=== PATIENT | male | born 1935 | race Caucasian/White ===

== ENCOUNTER 2016-08-29 14:28 | Inpatient (IN) | payer MEDICARE ==
[~2016-08-29] VITALS: Ht 172.7 cm; Wt 90.0 kg
[2016-08-30] VITALS (9 sets, daily range): BP systolic 119–151; BP diastolic 58–71; PULSE 48–68; RESP 14–18; TEMP 97.3–98.1; O2SAT 95–99
[2016-08-30] MEDS ORDERED: ASPI-110 PO (08:38)
[2016-08-30] MEDS ORDERED: HYDR12.57 PO (08:38)
[2016-08-30] MEDS ORDERED: RAMI5CAP PO (08:38)
[2016-08-30] MEDS ORDERED: ROSU10 PO (08:38)
[2016-08-30] MEDS ORDERED: DICL75TA PO (08:38)
[2016-08-30] MEDS ORDERED: CHOL5000 PO (08:38)
[2016-08-30 08:56] LABS: AUTOMATED NEUTROPHIL # 4.3 TH/MM3 (1.8-7.7); BASOPHIL # 0.1 TH/MM3 (0-0.2); BASOPHIL % 0.9 % (0.0-2.0); EOSINOPHIL # 0.1 TH/MM3 (0-0.4); EOSINOPHIL % 2.2 % (0.0-4.0); HEMATOCRIT 37.1 % (39.0-51.0); HEMO FLAGS DIFF FINAL; LYMPH % 21.5 % (9.0-44.0); LYMPHOCYTE # 1.3 TH/MM3 (1.0-4.8); MEAN CELL VOLUME 91.1 FL (80.0-100.0); MEAN CORPUSCULAR HEMOGLOBIN 31.8 PG (27.0-34.0); MEAN CORPUSCULAR HGB CONC 34.9 % (32.0-36.0); MONO % 5.7 % (0.0-8.0); NEUT % 69.7 % (16.0-70.0); PLATELET COUNT 147 TH/MM3 (150-450); RED BLOOD COUNT 4.07 MIL/MM3 (4.50-5.90); RED CELL DISTRIBUTION WIDTH 13.7 % (11.6-17.2); WHITE BLOOD COUNT 6.2 TH/MM3 (4.0-11.0)
[2016-08-30 09:05] LABS: APTT (PATIENT) 25.2 SEC (24.3-30.1)
[2016-08-30 09:12] LABS: BICARBONATE 26.1 MEQ/L (21.0-32.0); POTASSIUM 3.7 MEQ/L (3.5-5.1)
[2016-08-30] MEDS ORDERED: ceFAZolin INJ 1,000 MG VIAL ONE (09:17)
[2016-08-30] MEDS ORDERED: SODIUM CHLORIDE 0.9% INJ 100 ML ONE (09:18)
[2016-08-30] MEDS ORDERED: INSULIN HUMAN REGULAR 1,000 UNITS/10 ML VIAL SQ PRN (09:30)
[2016-08-30] MEDS ORDERED: CHLORHEXIDINE GLUCONATE 2 % 1 PACK (2 CLOTHS) TOPICAL PRN (09:30)
[2016-08-30] MEDS ORDERED: ceFAZolin 1,000 MG/NS 100 ML IV SCH ×2 (09:30)
[2016-08-30] MEDS ORDERED: METOPROLOL TARTRATE 25 MG TAB PO PRN (09:30)
[2016-08-30] MEDS ORDERED: LACTATED RINGER'S 1000 ML IV PRN (09:30)
[2016-08-30] MEDS ORDERED: SODIUM CHLORID 0.9% 500 ML IV PRN (09:30)
[2016-08-30] MEDS ORDERED: POVIDONE IODINE 5% (ANTISEPSIS KIT) 4 APPLICATIONS EACH NARE PRN (09:30)
[2016-08-30] MEDS ORDERED: HEPARIN SODIUM - SQ 10,000 UNITS/ML VIAL ONE (13:07)
[2016-08-30] MEDS ORDERED: BUPIVACAINE HCL PF 0.5% 30 ML VIAL ONE (13:07)
[2016-08-30] MEDS ORDERED: HEPARIN SODIUM - IV 10,000 UNITS/10 ML VIAL ONE (13:57)
[2016-08-30] MEDS ORDERED: PROTAMINE SULFATE 50 MG/5 ML VIAL ONE (13:57)
[2016-08-30] MEDS ORDERED: SUGAMMADEX SODIUM 200 MG/2 ML VIAL IV PUSH ONE ×2 (15:28)
[2016-08-30] MEDS ORDERED: MIDAZOLAM HCL 2 MG/2 ML VIAL ONE (17:12)
[2016-08-30] MEDS ORDERED: fentaNYL CITRATE 250 MCG/5 ML AMP ONE (17:12)
--- NOTE | 2016-08-30 17:12 | RADRPT ---
EXAM DATE/TIME: 08/30/2016 13:27 [place] COMPARISON: US GUIDED VASCULAR ACCESS, RIGHT, August 30, 2016, 0:00. INDICATIONS : Patient with AAA in need of hypogastric embolization prior to AAA repair. MEDICAL HISTORY : 1.CAD 2.Mitral/Tricuspid Valve regurg 3.Sleep apnea SURGICAL HISTORY : 1.Right hip replacement 2.CABG 3.Eye surgery ENCOUNTER: Initial ACUITY: > 1 year PAIN SCORE: 0/10 FLUORO TIME: 10.6 minutes IMAGE SERIES: 11 ACCESS SITE: Right Femoral artery CONTRAST: 1.) 60 cc omnipaque 300 DEVICE(S): 1.) Right internal iliac artery 10/5 Tornado embolic coil(s) x 8 2.) Right internal iliac artery 12mm x 7cm embolic coil(s) Anesthesia and pain control was provided by the Anesthesia department. TECH NOTE: Procedure performed in the [facility] MR#:[id number] :35 Exam Dt/Desc: August 30, 2016AN GIOGRAM, PELVIC PROCEDURE : 1. Ultrasound-guided puncture of the access site. 2. Conscious sedation with continuous EKG and Oximetry monitoring. 3. Angiography of the right hypogastric circulation 4. embolization of the right hypogastric artery. The patient is an 81-year-old with an abdominal aortic aneurysm as well as aneurysmal dilation of the right common iliac artery. The risks, benefits and alternatives to the procedure were explained and verbal and written consent w as obtained by Dr. Crow Ball. The site was prepped in sterile fashion. Full sterile technique was used, including cap, mask, sterile gloves and gown and a large sterile sheet. Hand hygiene and 2% ch lorhexidine and/or betadine/alcohol prep was utilized per protocol for cutaneous antisepsis. The ski n and subcutaneous tissues were infiltrated with local anesthetic solution. With ultrasound and fluoroscopic guidance the selected artery was punctured and a vascular sheath was placed A 0.035 angled Glidewire and Cobra glide catheter were advanced from the left groin and over into the right hypogastric origin. The catheter and wire were passed down into the distal aspect of the hypog astric. The origin of the hypogastric was embolized with multiple 10 mm x 15 cm embolization coils. S everal followup angiograms were performed. At the conclusion of the procedure there was near-complete stasis of flow within the hypogastric. Following embolization of the hypogastric circulation aneurysm repair was performed by Dr. Ball. CONCLUSION: Successful embolization of the right hypogastric origin. Flynn Roper MD on August 30, 2016 at 17:08 Board Certified Radiologist. This report was verified electronically.
--- NOTE | 2016-08-30 19:04 | EKG ---
Date Performed: 08/30/2016 Time Performed: 08:36:20 PTAGE: 81 years EKG: SINUS BRADYCARDIA BORDERLINE ECG NO PREVIOUS TRACING DOCTOR: Bi Arnold Interpretating Date/Time 08/30/2016 19:02:02
[2016-08-30] MEDS ORDERED: ONDANSETRON HCL 4 MG/2 ML VIAL IV PUSH PRN ×2 (19:45→20:45)
[2016-08-30] MEDS ORDERED: POTASSIUM PHOSPHATE 21 MMOL/NS 250 ML IV PRN ×4 (19:45→20:45)
[2016-08-30] MEDS ORDERED: POTASSIUM CHLOR 20 MEQ/100 ML x 1 BAG IV PRN ×2 (19:45→20:45)
[2016-08-30] MEDS ORDERED: MAGNESIUM SULFATE 1 GM/100 ML IV PRN ×2 (19:45→20:45)
[2016-08-30] MEDS ORDERED: POTASSIUM CHLOR 20 MEQ 100 ML x 2 BAGS IV PRN ×2 (19:45→20:45)
[2016-08-30] MEDS ORDERED: ACETAMINOPHEN/HYDROcodone 325 MG/5 MG TAB PO PRN ×2 (19:45→20:45)
[2016-08-30] MEDS ORDERED: LACTATED RINGER'S 500 ML INJ IV SCH (20:45)
[2016-08-30] MEDS ORDERED: ASPIRIN EC 81 MG TABEC PO SCH (22:00)
[2016-08-31] VITALS (13 sets, daily range): BP systolic 117–137; BP diastolic 52–74; PULSE 42–78; RESP 16; TEMP 98.2–98.6; O2SAT 96
[2016-08-31] MEDS ORDERED: ASPIRIN 81 MG CHEW TAB PO SCH (09:00)
[2016-08-31] MEDS ORDERED: HYDROCHLOROTHIAZIDE 12.5 MG CAP PO SCH (09:00)
[2016-08-31] MEDS ORDERED: ASPIRIN EC 81 MG TABEC PO SCH ×2 (09:00)
[2016-08-31] MEDS ORDERED: ATORVASTATIN 20 MG TAB PO SCH (09:00)
[2016-08-31] MEDS ORDERED: RAMIPRIL 5 MG CAP PO SCH (09:00)
--- NOTE | 2016-08-31 09:38 | MP ---
cc: DICK DEL ANGEL M.D., JAMES LASTARZA, MARK W. M.D., PH.D DATE OF SURGERY 08/30/2016 PREOPERATIVE DIAGNOSIS A 5.8 cm diameter infrarenal abdominal aortic aneurysm extending into both common iliac arteries. POSTOPERATIVE DIAGNOSIS A 5.8 cm diameter infrarenal abdominal aortic aneurysm extending into both common iliac arteries. OPERATIVE PROCEDURE Percutaneous endovascular aneurysm repair. Sacrifice embolization right internal iliac artery. SURGEON Corey Ball MD UNIFORMER Elliot Roper MD ANESTHESIA General endotracheal DESCRIPTION OF PROCEDURE With the patient in the supine position and under general endotracheal anesthesia, the abdomen, both groins and thighs were prepped with Betadine and draped in a sterile fashion. One gram of Ancef was administered intravenously and following a protocol time-out, skin and subcutaneous tissue at the proposed common femoral access site infiltrated with one quarter percent Marcaine with epinephrine. Utilizing ultrasound guidance, both common femoral arteries were accessed identically with 18 gauge needles, J-wire access to the common femoral iliac arteries and subsequent deployment of 7-Montenegrin hemostatic sheath. Dr. Elliot Roper then performed a sacrifice embolization of the right internal iliac artery. An angled glide wire over the aortic bifurcation from the left femoral approach and navigated under fluoroscopic guidance into the right internal iliac artery. A 5-[place]grin right angle sheath was guided over the guidewire and placed within the right internal iliac lumen. Multiple embolic coils were delivered into the right internal iliac and one of the posterior branches achieving occlusion. Angled glide wires were then navigated into the suprarenal aorta and Perclose devices deployed at the 10 and 2 o'clock positions bilaterally followed by replacement of the 7-[place]grin sheath. Angled glide wires were then exchanged over Berenstein catheters for Amplatz wires. The 7-Montenegrin sheaths were exchanged for 18 and 12-[place]gr[place] sheaths respectively via the right and left femoral approaches. The patient was systemically heparinized with 5000 units. A marker pigtail catheter was then guided via the left femoral sheath to the suprarenal aorta. Aortogram accurately delineated the origin of both renal arteries. The main body of the endoprosthesis was then guided via the right femoral sheath and placed within the sub renal aorta immediately distal to the origin of the renal arteries and pre deployed. The contralateral gate was engaged with a Berenstein angle glide wire combination. A 260 compliant balloon was then guided into the endoprosthetic lumen and partially inflated to ensure intraluminal localization. The marker pigtail catheter was replaced into the endoprosthetic lumen and a retrograde left femoral sheath injection accurately delineated the left iliac bifurcation allowing appropriate selection of the contralateral iliac leg length. The contralateral leg was deployed. Final deployment of the aortic and right iliac limb was completed. The aortic, iliac seal zones and overlap areas were balloon angioplastied with the compliant balloon. Completion angiogram revealed a small type IA leak along the right lateral wall. The 260 balloon reintroduced and the aortic seal area additionally dilated. Completion angiogram revealed complete eradication of the type IA endoleak with no technical defects. The hemostatic sheaths were removed and hemostasis achieved with the pre-deployed Perclose devices. Heparin was not reversed. At the completion of the procedure, pedal pulses remained easily palpable and vital signs normal. MD SAMMY Gtz/JUAN DIEGO /8:07 AM /9:26 AM
== END 2016-08-31 15:36 | disposition home or self-care (01) | DRG 269 ==
LOC: HSDI 08-30 07:45 → HCIN 08-30 17:21
PROVIDERS: ADMIT Surgery Vascular Surgery; ATTEND Surgery Vascular Surgery
PROC: 04V03D6 (ICD-10-PCS; principal; 2016-08-30)
PROC: 04VE3DZ Restriction of Right Internal Iliac Artery with Intraluminal Device, Percutaneous Approach (ICD-10-PCS; 2016-08-30)
PROC: B41B1ZZ Fluoroscopy of Other Intra-Abdominal Arteries using Low Osmolar Contrast (ICD-10-PCS; 2016-08-30)
DX: I71.4 Abdominal aortic aneurysm, without rupture (principal); I27.2 Other secondary pulmonary hypertension; I08.1 Rheumatic disorders of both mitral and tricuspid valves; I25.10 Atherosclerotic heart disease of native coronary artery without angina pectoris; G47.33 Obstructive sleep apnea (adult) (pediatric); Z96.641 Presence of right artificial hip joint; Z85.828 Personal history of other malignant neoplasm of skin; Z95.1 Presence of aortocoronary bypass graft; Z92.3 Personal history of irradiation
CPT/HCPCS: 80048; 85025; 85610; 85730; 86850; 86900; 86901; 86920; 93005; J0690; J1644; J2250; J2720; J3010; J7120